=== PATIENT | female | born 1975 | race Caucasian/White ===

== ENCOUNTER → 2017-02-07 | Outpatient (CLI) | payer OTHER ==
[~2017-02-07] MED LIST: ALBUTEROL17 GM INH; AMOXICILLIN PO; AMOXICILLIN875 MG PO; DIFLUCAN PO; FIORICET W/CODE1 CAP PO; FLOMAX0.4 M1 PO; INDERAL LA PO; LORTAB 5/500 TA1 TA1 PO; LORTAB 7.5-5001 TAB PO; MACROBID100 MG PO; MEDI-MECLIZINE25 M1 PO; MEDROL PO; MOTION RELIEF25 MG PO; NO MEDICATIONS; PENICILLIN V P250 MG PO; PERCOCET5/325 PO; PHENERGAN PO; PHENERGAN25 M1 PO; PROPRANOLOL; VICODIN 5/500 T1 TAB PO; VOLTAREN75 MG PO; ZITHROMAX PO; ZOFRAN ODT4 MG PO; ZOFRAN ODT4 MG/UDTAB PO
--- NOTE | ~2017-02-07 | ST ---
Unit #: [id number] #: [id number] Patient: FRANK SCHREIBER [id number] [address] [address] [id number] O MR#: [id number] NAME: FRANK SCHREIBER : 1975 SEX: F STUDY DATE/TIME: 02/07/2017 UNIT: [facility] ROOM: STUDY DESCRIPTION: Stress test Attending Physician: Alea Arevalo M.D. Referring Physician: Alea Arevalo M.D. Primary Care Physician: Jennyfer Love M.D. CARDIOLOGY REPORT EXAM Exercise Cardiolite stress test. FINDINGS Baseline EKG: Normal sinus rhythm with ventricular rate 75 beats per minute, poor R-wave progression, nonspecific ST-T wave abnormalities in inferior leads, slightly prolonged QT. The patient walked on a treadmill for six minutes utilizing Madhav protocol achieving a workload of 7.20 METs. Eighty-eight percent of maximum target heart rate achieved at a 160 beats per minute with a maximum blood pressure response of 162/90 mmHg. EKG during the test did show some T wave inversion in inferolateral leads. The patient had no complaints of chest pain, palpitations or dizziness. The patient had increased shortness of breath and fatigue which resolved in the recovery phase. IMPRESSION 1. Functional Class 3 with a workload of 7.20 METs. 2. Eighty-eight percent of maximum target heart achieved at 160 beats per minute with a maximum blood pressure response of 162/90 mmHg. 3. EKG during the test shows some T-wave inversion in inferolateral leads, otherwise, no acute ischemic changes. 4. The patient had no complaints of chest pain, palpitations or dizziness. The patient had increased shortness of breath and fatigue which resolved in the recovery phase. 5. Cardiolite was injected at maximum target heart rate. 6. Radionuclide test pending. Dictated by... Debbie BarkerP.RNandiniNNandini for Harmeet Pagan/beverly TD: 02/07/2017 11:12 JOB #: [id number] Unit #: [id number] #: [id number] Patient: FRANK SCHREIBER CARDIOLOGY REPORT Page 1 of 1 X Vy Tran APRN CARDIOLOGY REPORT
--- NOTE | ~2017-02-07 | TH ---
Unit #: [id number] #: [id number] Patient: FRANK SCHREIBER [id number] [address] [address] [id number] O MR#: [id number] NAME: FRANK SCHREIBER : 1975 SEX: F STUDY DATE/TIME: 02/07/2017 UNIT: [facility] ROOM: STUDY DESCRIPTION: Exercise stress test - Nuclear Attending Physician: Alea Arevalo M.D. Referring Physician: Alea Arevalo M.D. Primary Care Physician: Jennyfer Love M.D. CARDIOLOGY REPORT PROCEDURE PERFORMED Exercise Cardiolite stress test - Nuclear portion. PROCEDURE Using technetium 99m-labeled Cardiolite, rest and stress SPECT images were obtained. Multiple SPECT images were obtained in various views, including horizontal and vertical long axis and short axis views of the left ventricle. Images were obtained by gated SPECT method. The patient was administered 11.3 mCi of Cardiolite at rest. The patient was administered 34.9 mCi of Cardiolite at peak exercise. Total exercise time is 6 minutes. On the stress images, there is mildly decreased tracer uptake activity in the anteroapical wall. The rest images also show a small area of mildly decreased tracer uptake activity anteroapically. Comparing the rest and stress images, there is a small area of predominantly fixed defect seen anteroapically, most likely due to soft tissue artifact. The left ventricular ejection fraction is calculated to be 62%. There is no focal wall motion abnormality seen. CONCLUSION 1. No obvious stress-induced ischemia noted. 2. There is a small area of predominantly fixed defect seen anteroapically, most likely due to soft tissue artifact. 3. The left ventricular ejection fraction is calculated to be 62%. 4. There is no focal wall motion abnormality seen. 5. Normal exercise Cardiolite stress test. 6. Technically limited study. Clinical correlation is requested. Dictated by... Harmeet Pagan TD: 02/07/2017 15:38 JOB #: [id number] Unit #: [id number] #: [id number] Patient: FRANK SCHREIBER CARDIOLOGY REPORT Page 1 of 1 X Alea Arevalo MD <ELECTRONICALLY SIGNED> 04/15/17 [facility] CARDIOLOGY REPORT
== END | disposition home or self-care (01) ==
LOC: CNUC 08:48
DX: R07.9 Chest pain, unspecified (principal)
CPT/HCPCS: 78452; 93017; A9500